=== PATIENT | female | born 1960 | race American Indian/Alaskan Native ===

== ENCOUNTER 2017-05-18 17:07 | Inpatient (IN) | payer BC, OTHER ==
[~2017-05-18] VITALS: Ht 162.6 cm; Wt 99.8 kg
[2017-05-18] MEDS ORDERED: LOPERAMIDE HCL 2 MG CAPSULE PO PRN ×2 (21:30)
[2017-05-18] MEDS ORDERED: ACETAMINOPHEN 325 MG TABLET PO PRN (21:30)
[2017-05-18] MEDS ORDERED: CLONIDINE HCL 0.1 MG TABLET PO PRN (21:30)
[2017-05-18] MEDS ORDERED: LORAZEPAM 2 MG/1 ML VIAL IM PRN (21:30)
[2017-05-18] MEDS ORDERED: DICYCLOMINE HCL 20 MG TABLET PO PRN (21:30)
[2017-05-18] MEDS ORDERED: MIRALAX 17 GM POWD.PACK PO PRN (21:30)
[2017-05-18] MEDS ORDERED: ONDANSETRON 4 MG/2 ML VIAL IM PRN (21:30)
[2017-05-18] MEDS ORDERED: LORAZEPAM 1 MG TABLET PO PRN ×2 (21:30)
[2017-05-18] MEDS ORDERED: THIAMINE HCL 200 MG/2 ML VIAL IM ONE (21:30)
[2017-05-18] MEDS ORDERED: MAG HYDROX/AL HYDROX/SIMETH 30 ML LIQUID UDC PO PRN (21:30)
[2017-05-18 21:40] LABS: *AMPHETAMINE, URINE NEGATIVE (NEGATIVE); *BARBITURATE, URINE NEGATIVE (NEGATIVE); *CANNABINOID, URINE NEGATIVE (NEGATIVE); *COCCAINE, URINE NEGATIVE (NEGATIVE); *OPIATE, URINE NEGATIVE (NEGATIVE); *PHENCYCLIDINE SCREEN,URINE NEGATIVE (NEGATIVE)
--- NOTE | 2017-05-18 21:45 | NUR ---
Intake Assessment Assessment done at intake office. Patient is alert & oriented to name, place & situation. Pt is ambulatory with a steady gait. Patient appears intoxicated but cooperative during interviews. Speech is slurred but audible. Vitals noted B/P=140/101 MD=98, RR=18, Temp 97.1, O2Sat 97%. Pt is here for ETOH. No seizure history noted. Pt. has no known food and CODEINE allergy. Pt doesn't has any prescribed home medications. Explained to pt unit protocols. Pt informed on policy regarding destruction of any controlled substances/prescription brought to facility and handling of all medications. Pt verbalized understanding. Pt. will be admitted to the unit.
[2017-05-18] MEDS ORDERED: THIAMINE HCL 200 MG/2 ML VIAL ONE (22:17)
--- NOTE | 2017-05-18 23:00 | NUR ---
ADMISSION NOTE : Patient is a 56 y.o female admitted at [facility] at approximately 22:00pm of 05/18/17 for medically supervised withdrawal from ETOH. Body search done and skin check performed in Room 319 by SANJAY Saucedo, no contraband found. Pt. has multiple bruises, also under left eye, but no open wounds. Pt is 5'4" tall and weighs 220 lbs in a standing scale. Pt. denies to have Primary Care Provider at this time. Her longest sober period was 33 days in 2017. Pt is cooperative during assessment. Patient follows a regular diet at home with no known food, CODEINE allergy. Pt wishes to be full Code. Patient is alert & oriented x4, ambulatory with a steady gait. Speech is slurred but audible. Pt is intoxicated but able to answer questions. Patient appears anxious and agitated. Respiration even & unlabored. Abdomen soft & non-distended. Bowel sounds active in all four quadrants. No nausea/vomiting noted. Mild tremors noted. Pt denies any hallucinations. Vitals upon admission: B/P 140/101, WA 98, Temp 98.1, RR= 16, O2Sat= 97%. CIWA=5 Pt. has history of passive SI on 05/16/2017. Pt was able to provide urine sample for drug screen upon admission and is voiding clear yellow urine with no problems. She was oriented to her room and unit. Patient was encouraged to attend group meetings tomorrow. Alcohol level is 0.11. Fall precautions are in place. All needs attended & met. Safety precautions are in place. Notified Dr. Gaspar of pt's admission and will see pt in the morning. Awaiting for admission order. Safety measures in place : bed on lowest position with side rails x2 up for safety, call light within reach. Will continue to monitor closely and offer help. Substance use: 1. ETOH-VODKA. Pt has been drinking since 13 years old. Pt drinks 200ml of Vodka daily for 6 months. Last drink was 200ml 4 hours prior to admission. 2. ETOH- BEER. Pt has been drinking since 13 years old . Pt drinks 24 cans of Beer daily for 6 months. Last drink was 2,000ml 4 hours prior to admission. Pt. took 10 pills Xanax PO on 05/11/2017 and 05/12/2017 because of my depression Treatment History: -It is her first Detox treatment. PAST MEDICAL HISTORY : Pt. states to have HTN, DMII, Depression. She doesnt follow diet, Doesn't check her BS. FAMILY HISTORY : Parents and brother past away from complications of Alcohol abuse. Two sisters have HTN, Obesity. Three kids are in a good health.
[2017-05-18 23:27] LABS: *URINE HCG, QUAL NEGATIVE (NEGATIVE)
[2017-05-18 23:59] LABS: BILIRUBIN,TOTAL 0.2 mg/dL (0.2-1.0); MAGNESIUM 1.8 mg/dL (1.8-2.4); POTASSIUM 3.4 mmol/L (3.5-5.1); TOTAL PROTEIN, SERUM 7.6 g/dL (6.4-8.2)
[2017-05-19] VITALS: BP 140/101
[2017-05-19 00:08] LABS: BASOPHILS % (AUTO) 0.5 % (0.0-2.0); EOSINOPHILS # (AUTO) 0.1 K/uL (0.0-0.7); EOSINOPHILS % (AUTO) 2.1 % (0.0-7.0); HEMATOCRIT 34.2 % (37-47); HEMOGLOBIN 11.4 G/DL (12.0-16.0); LYMPHOCYTES # (AUTO) 2.3 K/UL (0.8-4.8); MEAN CORPUSCULAR HEMOGLOBIN 25.1 UUG (27.0-31.0); MEAN CORPUSCULAR HGB CONC 33 g/dL (32.0-37.0); MEAN CORPUSCULAR VOLUME 75.6 FL (81.0-99.0); MONOCYTES # (AUTO) 0.4 K/UL (0.1-1.30); MONOCYTES % (AUTO) 6.1 % (0.0-11.0); NEUTROPHILS # (AUTO) 3.5 K/UL (1.8-8.9); NEUTROPHILS % (AUTO) 55.3 % (38.5-71.5); PLATELET COUNT (AUTO) 241 K/UL (150-450); RED BLOOD CELL COUNT(AUTO) 4.52 MIL/UL (4.2-5.4); WHITE BLOOD COUNT (AUTO) 6.3 K/UL (4.0-11.2)
[2017-05-19 00:10] LABS: THYROID STIMULATING HORMONE 1.956 mIU/mL (0.358-3.740)
[2017-05-19 04:00] VITALS: BP 147/85
--- NOTE | 2017-05-19 05:00 | NUR ---
PRN MOTRIN Pt. complains of body ache 04/19. PRN MOTRIN given as ordered. Safety measures in place : bed on lowest position with side rails x2 up for safety, call light within reach. Will continue to monitor closely and offer help.
[2017-05-19] MEDS: IBUPROFEN 400 MG TABLET PO PRN ×2 (05:19→21:13)
[2017-05-19] MEDS ORDERED: IBUPROFEN 400 MG TABLET ONE (05:26)
--- NOTE | 2017-05-19 06:00 | NUR ---
REASSESSMENT GOGO Pt. is sleeping, RR=16, unlabored and even. Safety measures in place : bed on lowest position with side rails x2 up for safety, call light within reach. Will continue to monitor closely and offer help.
--- NOTE | 2017-05-19 06:39 | NUR ---
END OF SHIFT: Patient is a 56 y.o female admitted at [facility] at 22:00pm on 05/18/17 for medically supervised withdrawal from ETOH. Pt. has multiple bruises, also under left eye, but no open wounds. Patient follows a regular diet at home with no known food allergy , CODEINE allergy. Pt wishes to be full Code. Patient is alert & oriented x4, ambulatory with a steady gait. Patient appears anxious. Mild tremors noted. Pt denies any hallucinations. Fall precautions are in place. All needs attended & met. Pt remains compliant with the treatment plan. PRNs MOTRIN given during my shift. V/S remain WNL. RR=16, even and unlabored, lungs clear upon auscultation, abdomen soft and non- distended. Pt denies nausea, vomiting and diarrhea. LAST CIWA= 5 at 0400 , INTAKE= 740 ml, voided x 4, slept 5 hours. Safety measures in place : bed on lowest position with side rails x2 up for safety, call light within reach. Will continue to monitor closely and offer help.
--- NOTE | 2017-05-19 07:51 | NUR ---
Start of shift note; Received report from night nurse. Patient is a 56 year old female admitted on 05/18/17 for ETOH withdrawals. Patient reported history of hypertension, depression, passive suicidal ideation on 05/11/17, patient currently denies suicidal ideations. Patient also reported history of Diabetes type 2, patient reported that she stopped taking her Metformin 5 years ago and patient refused to check her blood sugar levels, upon admission blood sugar noted to be 158mg/dl. Educated patient regarding the importance of compliance to treatment and medication regime. Patient to be evaluated by MD today. No seizure history reported. Patient is on fall and seizure precaution. Bed in lowest position, call light within reach. Will closely monitor patient.
[2017-05-19 08:00] VITALS: BP 138/88
[2017-05-19] MEDS: THIAMINE HCL 100 MG TABLET PO SCH (08:31)
[2017-05-19] MEDS: FOLIC ACID 1 MG TABLET PO SCH (08:31)
[2017-05-19] MEDS: MULTIVITAMINS,THERAPEUTIC TABLET PO SCH (08:31)
[2017-05-19] MEDS: LORAZEPAM 1 MG TABLET PO SCH ×4 (08:31→21:12)
[2017-05-19] MEDS: ONDANSETRON ODT 4 MG TAB.RAPDIS SL PRN (08:37)
--- NOTE | 2017-05-19 08:39 | NUR ---
PRN medication; Patient is complaining of nausea, no emesis noted. PRN Zofran 4mg ODT given to prevent further nausea. Will continue to monitor patient for effectiveness of medication. Patient was started on 5 day Ativan taper per MD order, current CIWA score of 10. Educated patient regarding adverse/side effects of medication, Patient verbalized understanding.
[2017-05-19] MEDS ORDERED: TUBERCULIN,PURIF.PROT.DERIV. 5 TU/0.1 ML TEST ID ONE (09:00)
--- NOTE | 2017-05-19 09:39 | NUR ---
Re-assessment; Patient denies nausea at this time. PRN medication is effective.
--- NOTE | 2017-05-19 10:01 | NUR ---
Therapist prompted client about group times. Client reported she does not feel well today, and most likely won't attend.
[2017-05-19 12:00] VITALS: BP 161/75
--- NOTE | 2017-05-19 12:21 | NUR ---
PRN medication ; Patient BP noted to be elevated , BP of 161/75 note, PRN Clonidine 0.1mg PO given per MD order. Will continue to monitor patient for effectiveness of medication.
[2017-05-19] MEDS ORDERED: LISINOPRIL 10 MG TABLET PO SCH (13:15)
--- NOTE | 2017-05-19 13:21 | NUR ---
Re-assessment; Patient current BP is 132/82, HR of 80. PRN clonidine is effective.
[2017-05-19] MEDS ORDERED: POTASSIUM CHLORIDE 20 MEQ TAB.PRT.SR PO ONE (13:30)
[2017-05-19] MEDS ORDERED: LISINOPRIL 10 MG TABLET PO ONE (13:30)
--- NOTE | 2017-05-19 13:31 | NUR ---
New orders; ordered, K-dur 40meq for supplement. also ordered Prinivil 10mg PO daily and Metformin 500mg daily d/t patient reported history of DM type 2 and hypertension. Will continue to monitor patient. Addendum: 05/19/17 at 1500 by GUILLERMO SUTTON LVN Clarification; Metformin 500mg BID.
[2017-05-19 16:00] VITALS: BP 111/57
[2017-05-19] MEDS: METFORMIN HCL 500 MG TABLET PO SCH (17:27)
--- NOTE | 2017-05-19 18:21 | NUR ---
End of shift note; Patient is AOX4. Patient remained compliant with treatment plan and medication regime. Medications were effective in reducing withdrawal symptoms. Patient last CIWA score is 6 at 1600. Patient's Potassium was supplemented. Patient was placed on Metformin 500mg BID for DM type 2. Patient was started on 5 day Ativan taper, no adverse reactions noted. Patient is on fall and seizure precaution. Bed in lowest position, call light within reach. Met all needs.
--- NOTE | 2017-05-19 19:15 | NUR ---
START OF SHIFT NOTE : Patient is a 56 year old female admitted on 05/18/17 for ETOH withdrawals. Patient reported history of hypertension, depression, passive suicidal ideation on 05/11/17, patient currently denies suicidal ideations. Patient also reported history of Diabetes type 2, patient reported that she stopped taking her Metformin 5 years ago and patient refused to check her blood sugar levels. Educated patient regarding the importance of compliance to treatment and medication regime. No seizure history reported. Patient is on fall and seizure precaution, A/Ox4, friendly and cooperative. Pt. complains of sleeplessness and moderate body ache. She started on 5 day Ativan taper on 05/19/2017. Safety measures in place : bed on lowest position with side rails x2 up for safety, call light within reach. Will continue to monitor closely and offer help.
[2017-05-19 20:00] VITALS: BP 111/63
--- NOTE | 2017-05-19 21:00 | NUR ---
PRN MOTRIN, BENADRYL Pt. complains of sleeplessness, mild body ache. PRN MOTRIN, BENADRYL given as ordered. Safety measures in place : bed on lowest position with side rails x2 up for safety, call light within reach. Will continue to monitor closely and offer help.
[2017-05-19] MEDS: diphenhydrAMINE 50 MG CAPSULE PO PRN (21:13)
--- NOTE | 2017-05-19 22:00 | NUR ---
REASSESSMENT MONICA BOWENS Pt. is sleeping, RR=16, unlabored and even. Safety measures in place : bed on lowest position with side rails x2 up for safety, call light within reach. Will continue to monitor closely and offer help.
[2017-05-20 04:00] VITALS: BP 114/56
--- NOTE | 2017-05-20 06:36 | NUR ---
END OF SHIFT NOTE : Patient is a 56 year old female admitted on 05/18/17 for ETOH withdrawals. Patient reported history of hypertension, depression, passive suicidal ideation on 05/11/17, patient currently denies suicidal ideations. Patient also reported history of Diabetes type 2, patient reported that she stopped taking her Metformin 5 years ago and patient refused to check her blood sugar levels. Educated patient regarding the importance of compliance to treatment and medication regime. No seizure history reported. Patient is on fall and seizure precaution, A/Ox4, friendly and cooperative. Pt. complains of sleeplessness and moderate body ache. She started on 5 day Ativan taper on 05/19/2017. Pt remains compliant with the treatment plan. PRNs BENADRYL, MOTRIN given during my shift. V/S remain WNL. RR=16, even and unlabored, lungs clear upon auscultation, abdomen soft and non- distended. Pt denies nausea, vomiting and diarrhea. LAST CIWA= 4 at 0400 , INTAKE= 1291 ml, voided x2 , slept 7 hours. Safety measures in place : bed on lowest position with side rails x2 up for safety, call light within reach. Will continue to monitor closely and offer help.
--- NOTE | 2017-05-20 07:14 | NUR ---
Start of shift note SBAR report rcv'd. Pt was admitted for ETOH dependence. Pt has a PMHx of DM II controlled with oral medications, HTN and depression. Pt is on a 5 day ativan taper. Pt reports an allergy to codeine, pt is a full code and on a regular diet, confirmed with MD H&P notes. Pt is currently resting in bed, pt has no complaints at this time. Bed is locked in a low position, call light within reach. All needs addressed at this time. Will continue to monitor pt.
[2017-05-20 08:00] VITALS: BP 131/72
[2017-05-20 08:06] LABS: HEPATITIS B SURFACE AG Negative (Negative)
[2017-05-20] MEDS: METFORMIN HCL 500 MG TABLET PO SCH ×2 (08:20→17:25)
--- NOTE | 2017-05-20 08:20 | NUR ---
PRN administration Pt c/o pain 5/10 in her right arm. Administered PRN motrin per MD order. Will continue to monitor pt.
[2017-05-20] MEDS: IBUPROFEN 400 MG TABLET PO PRN ×2 (08:21→12:34)
[2017-05-20] MEDS: FOLIC ACID 1 MG TABLET PO SCH (08:21)
[2017-05-20] MEDS: THIAMINE HCL 100 MG TABLET PO SCH (08:21)
[2017-05-20] MEDS: LISINOPRIL 20 MG TABLET PO SCH (08:21)
[2017-05-20] MEDS: LORAZEPAM 1 MG TABLET PO SCH ×3 (08:21→20:56)
[2017-05-20] MEDS: MULTIVITAMINS,THERAPEUTIC TABLET PO SCH (08:21)
[2017-05-20 08:25] LABS: CREATININE 0.8 mg/dL (0.6-1.3); POTASSIUM 4.5 mmol/L (3.5-5.1)
[2017-05-20] MEDS ORDERED: LISINOPRIL 10 MG TABLET PO SCH (09:00)
--- NOTE | 2017-05-20 09:20 | NUR ---
Reassessment Pt states that her pain has improved to a level of 2/10. Pt states that she is comfortable at this time. Will continue to monitor pt.
[2017-05-20 12:00] VITALS: BP 149/81
--- NOTE | 2017-05-20 12:38 | NUR ---
PRN administration Pt reports a pain level of 7/10 in her shoulder. Administered PRN motrin per MD order. Will continue to monitor pt.
--- NOTE | 2017-05-20 13:28 | NUR ---
Reassessment Pt states that her pain level is 4/10 and that she is comfortable. All other needs addressed. Will continue to monitor pt.
[2017-05-20] MEDS: CLONIDINE HCL 0.1 MG TABLET PO SCH ×2 (14:15→20:56)
[2017-05-20 16:00] VITALS: BP 150/80
--- NOTE | 2017-05-20 18:58 | NUR ---
End of shift note Pt was admitted for ETOH dependence. Pt has a PMHx of DM II controlled with oral medications, HTN and depression. Pt is on a 5 day ativan taper and is tolerating well. Pt reports an allergy to codeine, pt is a full code and on a regular diet. Pt was started on Clonidine to assist in managing her s/s of withdrawal. Pt has no complaints at this time. At 0800 pt had a CIWA of 11, and at 1600 pt had a CIWA of 6. Pt states that the medication is assisting to make her feel better. Pt drank 2250ml of fluids, ate 100% of breakfast, 25% of lunch and 75% of dinner. Pt had 3 voids and no BMs during the shift. Pt has no complaints at this time. Will endorse SBAR to oncoming shift.
--- NOTE | 2017-05-20 19:10 | NUR ---
Start of Shift Patient received. Patient is in activities room participating in group meeting. Patient is a 56 year old female, admitted on 05/18/17 for ETOH Dependence under the care of Dr. Gaspar. Patient is currently receiving a 5 day Ativan taper. Patient verbalizes allergy to Codeine, wishes to be full code, following a regular diet, placed on fall and seizure precautions. Skin noted with multiple scattered discolorations throughout body. Patient was give PRN motrin with medication noted to be effective. Last noted CIWA noted to be 6. All needs attended to promptly. Will continue plan of care as ordered.
[2017-05-20 20:20] VITALS: BP 139/77
[2017-05-20] MEDS: diphenhydrAMINE 50 MG CAPSULE PO PRN (21:00)
--- NOTE | 2017-05-20 21:00 | NUR ---
PRN Medication administration Patient is verbalizing inability of falling asleep. All non pharmacological interventions noted to be not effective. PRN Benadryl administered. Will continue to monitor for effectiveness.
--- NOTE | 2017-05-20 22:00 | NUR ---
PRN Medication Reassessment Patient noted in bed sleeping. Breathing even and non labored. No signs of pain or discomfort noted. PRN Benadryl administered and noted to be effective. Patient continues to sleep with no interruptions noted. Will continue to monitor.
[2017-05-21] VITALS: BP 127/57
[2017-05-21 04:00] VITALS: BP 140/76
--- NOTE | 2017-05-21 07:07 | NUR ---
End of Shift Patient is in bed sleeping. Breathing even and non labored. No signs of pain or discomfort. Patient is a 56 year old female, admitted on 05/18/17 for ETOH Dependence under the care of Dr. Gaspar. Patient is currently receiving a 5 day Ativan taper. Patient verbalizes allergy to Codeine, full code, regular diet, placed on fall and seizure precautions. Skin noted with multiple scattered discolorations throughout body. Patient was give PRN Benadryl for sleep with medication noted to be effective. Last noted CIWA noted to be 5. All needs attended to promptly. Will endorse to continue plan of care as ordered.
--- NOTE | 2017-05-21 07:22 | NUR ---
Start of shift note; Received report from night nurse. Patient is a 56 year old female admitted on 05/18/17 for ETOH withdrawals. Patient reported history of hypertension, depression, passive suicidal ideation on 05/11/17, patient currently denies suicidal ideations. Patient also reported history of Diabetes type 2, patient was placed on Metformin 500mg BID. Educated patient regarding the importance of compliance to treatment and medication regime. No seizure history reported. Patient is on fall and seizure precaution. Bed in lowest position, call light within reach. Will closely monitor patient.
[2017-05-21 08:00] VITALS: BP 157/65
[2017-05-21] MEDS: glipiZIDE 5 MG TABLET PO SCH (08:15)
[2017-05-21] MEDS: METFORMIN HCL 500 MG TABLET PO SCH ×2 (08:15→17:16)
[2017-05-21] MEDS: LORAZEPAM 1 MG TABLET PO SCH ×4 (08:15→21:20)
[2017-05-21] MEDS: THIAMINE HCL 100 MG TABLET PO SCH (08:15)
[2017-05-21] MEDS: FOLIC ACID 1 MG TABLET PO SCH (08:16)
[2017-05-21] MEDS: CLONIDINE HCL 0.1 MG TABLET PO SCH ×3 (08:16→21:20)
[2017-05-21] MEDS: MULTIVITAMINS,THERAPEUTIC TABLET PO SCH (08:16)
[2017-05-21] MEDS: LISINOPRIL 20 MG TABLET PO SCH (08:16)
[2017-05-21 12:00] VITALS: BP 115/76
[2017-05-21] MEDS: GABAPENTIN 300 MG CAPSULE PO SCH ×2 (14:17→21:19)
[2017-05-21] MEDS: IBUPROFEN 400 MG TABLET PO PRN ×2 (14:39→21:20)
--- NOTE | 2017-05-21 14:39 | NUR ---
PRN medication; Patient is complaining of arm pain rated 5/10, PRN Motrin 400mg PO given. Will continue to monitor for effectiveness of medication.
--- NOTE | 2017-05-21 15:39 | NUR ---
Re-assessment; PRN medication is effective. Patient denies pain at this time.
[2017-05-21 16:00] VITALS: BP 143/78
--- NOTE | 2017-05-21 18:01 | NUR ---
End of shift note; Patient is AOX4. Patient remained compliant with treatment plan and medication regime. Medications were effective in reducing withdrawal symptoms. Patient last CIWA score is 2 at 1600. Patient was started on 5 day Ativan taper, no adverse reactions noted. Patient remained compliant with treatment plan and medication regime. Patient is on fall and seizure precaution. Bed in lowest position, call light within reach. Met all needs.
--- NOTE | 2017-05-21 19:25 | NUR ---
Start of Shift Patient received. Patient is in activities room participating in group meeting. Patient is a 56 year old female, admitted on 05/18/17 for ETOH Dependence under the care of Dr. Gaspar. Patient is currently receiving a 5 day Ativan taper. Patient verbalizes allergy to Codeine, wishes to be full code, following a regular diet, placed on fall and seizure precautions. Skin noted with multiple scattered discolorations throughout body. Per endorsement, Patient was give PRN Motrin for right shoulder pain with medication noted to be effective. Last noted CIWA noted to be 2. All needs attended to promptly. Will continue plan of care as ordered.
[2017-05-21 20:30] VITALS: BP 132/74
[2017-05-21] MEDS: diphenhydrAMINE 50 MG CAPSULE PO PRN (21:20)
--- NOTE | 2017-05-21 21:20 | NUR ---
PRN Medication Administration Patient verbalized right shoulder pain 5/10 and inability of falling asleep. PRN Motrin and Benadryl administered. Will continue to monitor.
--- NOTE | 2017-05-21 22:20 | NUR ---
PRN Medication Reassessment Patient noted in bed sleeping. Breathing even and non labored. No signs of pain or discomfort noted. No facial grimacing noted. PRN Benadryl and Motrin noted to be effective. Will continue to monitor.
[2017-05-22 00:30] VITALS: BP 151/63
[2017-05-22 04:20] VITALS: BP 144/67
--- NOTE | 2017-05-22 07:17 | NUR ---
End of Shift Patient is in bed sleeping. Breathing even and non labored. No signs of pain or discomfort. Patient is a 56 year old female, admitted on 05/18/17 for ETOH Dependence under the care of Dr. Gaspar. Patient is currently receiving a 5 day Ativan taper. Patient verbalizes allergy to Codeine, full code, regular diet, placed on fall and seizure precautions. Skin noted with multiple scattered discolorations throughout body. Patient was given PRN Benadryl for sleep and PRN Motrin for pain with both medications noted to be effective. All needs attended to promptly. Will endorse to continue plan of care as ordered.
[2017-05-22 08:00] VITALS: BP 139/82
--- NOTE | 2017-05-22 08:30 | NUR ---
Start of Shift Notes: Received patient in her room. Alert and oriented x 4. Verbally responsive. Able to make her needs known. Respirations even and unlabored. No SOB noted. Skin warm and dry to touch. Abdomen soft and non-distended with (+) BS in all 4 quadrants. No complains of N/V/D or constipation noted. No complains of abdominal discomfort. Voids independently. Ambulatory ad vijay with steady gait. Patient is a 56 year old female admitted for ETOH dependence. Prior to admission, patient was using 200cc of Vodka, and 24 cans of beer. Placed on a 5-day Ativan taper as ordered. No adverse reactions noted. Has past medical hx of DM type II, HTN and Depression. Allergic to codeine. FULL CODE. Regular diet. On fall and seizure precautions. Encouraged oral fluid intake and encouraged group participation to learn new skills to prevent relapse. Will continue to monitor closely.
[2017-05-22] MEDS: glipiZIDE 5 MG TABLET PO SCH (08:39)
[2017-05-22] MEDS: GABAPENTIN 300 MG CAPSULE PO SCH ×3 (08:39→20:30)
[2017-05-22] MEDS: CLONIDINE HCL 0.1 MG TABLET PO SCH ×3 (08:40→20:31)
[2017-05-22] MEDS: AMLODIPINE 5 MG TABLET PO SCH (08:40)
[2017-05-22] MEDS: MULTIVITAMINS,THERAPEUTIC TABLET PO SCH (08:40)
[2017-05-22] MEDS: LISINOPRIL 20 MG TABLET PO SCH (08:40)
[2017-05-22] MEDS: METFORMIN HCL 500 MG TABLET PO SCH ×2 (08:40→17:10)
[2017-05-22] MEDS: THIAMINE HCL 100 MG TABLET PO SCH (08:40)
[2017-05-22] MEDS: FOLIC ACID 1 MG TABLET PO SCH (08:41)
[2017-05-22] MEDS: LORAZEPAM 1 MG TABLET PO SCH ×3 (08:41→20:31)
[2017-05-22 12:00] VITALS: BP 118/71
[2017-05-22] MEDS: IBUPROFEN 400 MG TABLET PO PRN ×2 (14:31→21:25)
[2017-05-22] MEDS: BACLOFEN 20 MG TABLET PO PRN (14:31)
--- NOTE | 2017-05-22 14:32 | NUR ---
Baclofen 20 mg PO/Ibuprofen 400 mg PO given: Patient complained of 7/10 right arm pain r/t s/p fall. Medicated patient with Baclofen 20 mg and Ibuprofen 400 mg PO as ordered. Will monitor for effectiveness.
--- NOTE | 2017-05-22 15:32 | NUR ---
Re-assessment: Per patient, PRN Baclofen and Motrin were effective in reducing right arm pain. PL 2.
[2017-05-22 16:00] VITALS: BP 121/73
--- NOTE | 2017-05-22 17:08 | NUR ---
Therapist prompted client to attend daily group sessions. Client stated that she will attend.
--- NOTE | 2017-05-22 18:46 | NUR ---
End of Shift Notes; Patient continues to be on 5-day Ativan taper as ordered. No adverse reactions noted. VS monitored closely q 4hours. No significant abnormalities noted. BP monitored closely due to HTN. No s/s of hypo/HTN noted. No s/s of hypo/hyperglycemia noted related to DM. Withdrawal symptoms were closely monitored. Initial CIWA 3. Patient presented with anxiety, mild sweats. Last CIWA 2. Medicated patient with Motrin and Baclofen at 1431 for right arm pain due to a fall at home with help after 1 hour. Participated in group and activities. Compliant with care and treatment. All needs met and attended. Will continue to monitor closely.
[2017-05-22 20:00] VITALS: BP 127/75
--- NOTE | 2017-05-22 20:00 | NUR ---
Start of Shift Pt is a 56 year old female admitted for ETOH dependence, placed on 5 day Ativan taper. Pt reported using Vodka 200ml/daily & Beer 24 cans/daily. PMH: DM II, HTN, depression. pt reports allergies to codeine, regular diet, fall seizure precautions and full code. Upon assessment, pt presents with anxiety, reports feeling fatigue, mild chills throughout body, Respirations even/unlabored, denies SOB/chest pain, denies n/v/d, denies SI/HI, bowel sounds active x4, abdomen soft. Safety measures in place, call light within reach, side rails up x2, bed locked and in low position. Will continue to monitor.
[2017-05-22] MEDS ORDERED: PRAZOSIN HCL 1 MG CAPSULE PO SCH (21:00)
[2017-05-22] MEDS: diphenhydrAMINE 50 MG CAPSULE PO PRN (21:22)
--- NOTE | 2017-05-22 21:22 | NUR ---
PRN Administration Pt reports pain in right wrist, rated 7/10. Pt requests aid to help her sleep. Motrin 400mg PRN and Benadryl 50mg PRN administered. Safety measures in place. Will continue to monitor.
--- NOTE | 2017-05-22 22:30 | NUR ---
PRN Reassessment Upon reassessment, pt is sleeping, eyes closed, respirations even/unlabored, no s/s of acute distress noted. Safety measures in place. Will continue to monitor.
[2017-05-23] VITALS (7 sets, daily range): BP systolic 108–152; BP diastolic 64–79
--- NOTE | 2017-05-23 | NUR ---
Vital Signs BP 138/69, pulse 65, respirations 16, SpO2 97% room air, temp 97.9, no pain 0/10 CIWA deferred d/t pt sleeping to assess while pt is awake as ordered. Safety measures in place, will continue to monitor.
--- NOTE | 2017-05-23 04:00 | NUR ---
Vital Signs BP 152/75, pulse 49, respirations 16, SpO2 97% room air, temp 98 CIWA deferred d/t pt sleeping to assess while pt is awake as ordered. No s/s of acute distress noted, respirations even/unlabored, no reports of pain Safety measures in place, will continue to monitor.
--- NOTE | 2017-05-23 07:00 | NUR ---
End of Shift Pt is a 56 year old female admitted for ETOH dependence, placed on 5 day Ativan taper. Pt reported using Vodka 200ml/daily & Beer 24 cans/daily. PMH: DM II, HTN, depression. pt reports allergies to codeine, regular diet, fall seizure precautions and full code. During, pt presented with anxiety, reported feeling fatigue, mild chills throughout body - scheduled taper medications administered, effective in management of s/s of withdrawal as reported per pt, CIWA 3. Motrin 400mg PRN and Benadryl 50mg PRN administered for pain 7/10 in right wrist and for difficulty sleeping, effective. Pt slept for 7 hours, intake of 1500 ml PO, voids x1 and stool x0. Safety measures in place, call light within reach, side rails up x2, bed locked and in low position. Endorsed to day shift nurse.
--- NOTE | 2017-05-23 07:30 | NUR ---
START OF SHIFT Pt 56 y/o female admitted for etoh dependence. Pt received in room on bed with eyes closed resting, but easily arousable to name, place, and time. Perrla. Skin warm and slightly moist to touch. Respirations even and unlabored. No signs/symptoms of hypo/ hyperglycemia noted. It was reported that pt slept for 7 hours last night. Bed on lowest position with side rails x2 up for safety. Call light within reach. No distress noted at this time.
[2017-05-23] MEDS: CLONIDINE HCL 0.1 MG TABLET PO SCH ×3 (08:20→21:56)
[2017-05-23] MEDS: glipiZIDE 5 MG TABLET PO SCH (08:20)
[2017-05-23] MEDS: METFORMIN HCL 500 MG TABLET PO SCH ×2 (08:21→17:04)
[2017-05-23] MEDS: AMLODIPINE 5 MG TABLET PO SCH (08:21)
[2017-05-23] MEDS: FOLIC ACID 1 MG TABLET PO SCH (08:21)
[2017-05-23] MEDS: MULTIVITAMINS,THERAPEUTIC TABLET PO SCH (08:21)
[2017-05-23] MEDS: LISINOPRIL 20 MG TABLET PO SCH (08:21)
[2017-05-23] MEDS: THIAMINE HCL 100 MG TABLET PO SCH (08:21)
[2017-05-23] MEDS: GABAPENTIN 300 MG CAPSULE PO SCH ×3 (08:21→21:56)
[2017-05-23] MEDS: IBUPROFEN 400 MG TABLET PO PRN ×2 (08:21→21:56)
--- NOTE | 2017-05-23 08:21 | NUR ---
PRN Pt states has right arm pain 5/10. Motrin po prn per MD order given and tolerated well.
[2017-05-23] MEDS: LORAZEPAM 1 MG TABLET PO SCH ×2 (08:22→21:56)
--- NOTE | 2017-05-23 09:16 | NUR ---
PRN Pt with vomit episode. zofran IM per MD order given and tolerated well.
--- NOTE | 2017-05-23 09:21 | NUR ---
PRN EVAL Pt stated right arm pain 2/10.
--- NOTE | 2017-05-23 10:16 | NUR ---
PRN EVAL Pt observed in room on bed watching television. No c/o nausea noted.
--- NOTE | 2017-05-23 12:38 | NUR ---
PRN Pt with c/o left lower extremity pain. [place] topical prn per MD order given. Addendum: 05/23/17 at 1300 by NICHOLAS ROA RN incorrect pt
[2017-05-23] MEDS: BACLOFEN 20 MG TABLET PO PRN ×2 (14:12→23:31)
--- NOTE | 2017-05-23 14:13 | NUR ---
PRN Pt with c/o muscle aches. Robaxin po prn per MD order given and tolerated well.
--- NOTE | 2017-05-23 15:10 | NUR ---
PRN FELIX pt states pain 02/17.
--- NOTE | 2017-05-23 18:30 | NUR ---
END OF SHIFT Pt 56 y/o female admitted for etoh dependence. Pt alert and oriented to name, place, and time. [place]. Skin warm and slightly moist to touch. Respirations even and unlabored. Pt mostly observed in patio and dining room throughout the day. Pt was seen by OT for eval for a splint on right wrist. Pt medication compliant and tolerated well. No ASE noted. Bed on lowest position with side rails x2 up for safety. Call light within reach. No distress noted at this time.
--- NOTE | 2017-05-23 20:15 | NUR ---
START OF SHIFT Received report from day shift nurse. Pt attended a group meeting and returned to her room after. She is a 56 yo female admitted to [facility] on 05/18 for ETOH dependence. She is A&O x4 and ambulatory. Allergic to codeine, full code status, and on a regular diet. She has a PMH of DM Type II, HTN, SI 05/11/14, right wrist injury, and depression. On admission she admitted to drinking vodka 200mL per day and beer 24 cans per day. She started a 5 day Ativan taper on 05/19. Pt reports anxiety and has moist skin. She is tearful when speaking about her family and verbalizes her motivation for treatment. Pt denies SI. Provided support and encouragement. Ativan taper due tonight. Fall and seizure precautions in place.
--- NOTE | 2017-05-23 21:57 | NUR ---
PRN Motrin reassessment Pt reports right wrist pain 5/10. PRN Motrin administered.
--- NOTE | 2017-05-23 22:57 | NUR ---
PRN Motrin reassessment PRN Motrin effective. Pt reports right wrist pain is relieved.
[2017-05-23] MEDS: diphenhydrAMINE 50 MG CAPSULE PO PRN (23:31)
--- NOTE | 2017-05-23 23:32 | NUR ---
PRN Baclofen and Benadryl Pt reports back ache and inability to sleep. PRN Baclofen and Benadryl administered.
[2017-05-24] VITALS (8 sets, daily range): BP systolic 108–150; BP diastolic 57–90
--- NOTE | 2017-05-24 00:32 | NUR ---
PRN Baclofen and Benadryl reassessment PRN Baclofen and Benadryl effective. Pt is lying in bed resting with eyes closed. Respirations even and unlabored. Safety measures in place.
[2017-05-24] MEDS: IBUPROFEN 400 MG TABLET PO PRN ×2 (05:59→21:53)
[2017-05-24] MEDS ORDERED: HYDROXYZINE PAMOATE 25 MG CAPSULE PO PRN (06:15)
--- NOTE | 2017-05-24 06:20 | NUR ---
PRN Vistaril and Motrin Pt woke up with an episode of nocturia. She is anxious and tearful. She reports, "this never happened before". B/P 150/90, HR 69, RR 18, O2 sat 100%, T 98.0. She reports a headache. Provided support. Educated pt regarding diabetic diet. PRN Vistaril and Motrin administered.
[2017-05-24] MEDS ORDERED: HYDROXYZINE PAMOATE 25 MG CAPSULE ONE (06:27)
--- NOTE | 2017-05-24 07:25 | NUR ---
END OF SHIFT Report provided to day shift nurse. Pt is lying in bed resting. She is a 56 yo female admitted to [facility] on 05/18 for ETOH dependence. She is A&O x4 and ambulatory. Allergic to codeine, full code status, and on a regular diet. She has a PMH of DM Type II, HTN, SI 05/11/14, and depression. Upon admission she reported drinking vodka 200mL per day and beer 24 cans per day. 5 day Ativan taper was started on 05/19. PRN Motrin x2, Baclofen, Vistaril, and Benadryl administered. B/P slightly elevated and she had ongoing anxiety. Pt had one episode of nocturia. Last CIWA was 8. She drank 1250mL and slept for 7 hours. Fall and seizure precautions in place.
[2017-05-24] MEDS: THIAMINE HCL 100 MG TABLET PO SCH (09:20)
[2017-05-24] MEDS: FOLIC ACID 1 MG TABLET PO SCH (09:20)
[2017-05-24] MEDS: METFORMIN HCL 500 MG TABLET PO SCH ×2 (09:20→18:44)
[2017-05-24] MEDS: LISINOPRIL 20 MG TABLET PO SCH (09:20)
[2017-05-24] MEDS: MULTIVITAMINS,THERAPEUTIC TABLET PO SCH (09:20)
[2017-05-24] MEDS: CLONIDINE HCL 0.1 MG TABLET PO SCH ×3 (09:21→21:20)
[2017-05-24] MEDS: GABAPENTIN 300 MG CAPSULE PO SCH ×3 (09:21→21:21)
[2017-05-24] MEDS: BACLOFEN 20 MG TABLET PO PRN (09:21)
--- NOTE | 2017-05-24 09:21 | NUR ---
PRN Pt with c/o right wrist pain 06/19. Baclofen po prn per MD order given and tolerated well.
[2017-05-24] MEDS: glipiZIDE 5 MG TABLET PO SCH (09:22)
[2017-05-24] MEDS: AMLODIPINE 5 MG TABLET PO SCH (09:36)
--- NOTE | 2017-05-24 10:21 | NUR ---
PRN EVAL Pt states pain is 4/10.
[2017-05-24] MEDS: ONDANSETRON ODT 4 MG TAB.RAPDIS SL PRN (11:34)
--- NOTE | 2017-05-24 11:39 | NUR ---
PRN Pt with 1 vomit episode. Zofran po prn per MD order given and tolerated well.
--- NOTE | 2017-05-24 12:39 | NUR ---
PRN EVAL Pt denies any nausea or vomit at this time.
[2017-05-24] MEDS ORDERED: METHOCARBAMOL 750 MG TABLET PO PRN (13:15)
[2017-05-24] MEDS ORDERED: LISI-603 PO (13:19)
[2017-05-24] MEDS ORDERED: METH-406 PO (13:19)
[2017-05-24] MEDS ORDERED: AMLO5TAB2 PO (13:19)
[2017-05-24] MEDS ORDERED: GLIP5TAB13 PO (13:19)
[2017-05-24] MEDS ORDERED: GABA-534 PO (13:19)
[2017-05-24] MEDS ORDERED: HYDR-3895 PO (13:19)
[2017-05-24] MEDS ORDERED: ONDA4TAB11 SL (13:19)
[2017-05-24] MEDS ORDERED: CLON0.1T14 PO (13:19)
[2017-05-24] MEDS ORDERED: METF500T4 PO (13:19)
--- NOTE | 2017-05-24 16:40 | NUR ---
PRN Pt with c/o pain 8/10 of right wrist. Robaxin po prn per MD order given and tolerated well.
--- NOTE | 2017-05-24 17:40 | NUR ---
SUSAN [place] Pt observed walking around in patio. No distress noted at this time.
--- NOTE | 2017-05-24 18:29 | NUR ---
END OF SHIFT Pt 56 y/o female admitted for etoh dependence. Pt alert and oriented to name, place, and time. [place]. Skin warm and slightly moist to touch. Respirations even and unlabored. Pt mostly observed in patio and dining room throughout the day. Pt was seen by OT for eval for a splint on right wrist. Pt medication compliant and tolerated well. No ASE noted. Pt was seen by Dr. Delaney today. Bed on lowest position with side rails x2 up for safety. Call light within reach. No distress noted at this time.
[2017-05-24 19:52] LABS: *AMPHETAMINE, URINE NEGATIVE (NEGATIVE); *BARBITURATE, URINE NEGATIVE (NEGATIVE); *CANNABINOID, URINE NEGATIVE (NEGATIVE); *COCCAINE, URINE NEGATIVE (NEGATIVE); *OPIATE, URINE NEGATIVE (NEGATIVE); *PHENCYCLIDINE SCREEN,URINE NEGATIVE (NEGATIVE)
--- NOTE | 2017-05-24 20:00 | NUR ---
Start of Shift Pt is a 56 year old female admitted for ETOH dependence, placed on 5 day Ativan taper, completed. Pt reported using Vodka 200ml/daily & Beer 24 cans/daily. PMH: DM II, HTN, depression. pt reports allergies to codeine, regular diet, fall seizure precautions and full code. Upon assessment, pt presents with anxiety, reports mild body aches. Respirations even/unlabored, denies SOB/chest pain, denies n/v/d, denies SI/HI, bowel sounds active x4, abdomen soft. Pt is scheduled for discharge tomorrow. Safety measures in place, call light within reach, side rails up x2, bed locked and in low position. Will continue to monitor.
[2017-05-24] MEDS: diphenhydrAMINE 50 MG CAPSULE PO PRN (21:53)
--- NOTE | 2017-05-24 21:53 | NUR ---
PRN Administration Pt reports pain in right wrist rated, 6/10. Reports difficulty falling asleep. Motrin 400mg PRN and Benadryl 50mg PRN administered. Safety measures in place, will continue to monitor.
--- NOTE | 2017-05-24 22:53 | NUR ---
PRN Reassessment Upon reassessment, pt is sleeping, no s/s of acute distress noted, respirations even/unlabored. Safety measures in place. Will continue to monitor.
[2017-05-25] VITALS: BP 120/62
--- NOTE | 2017-05-25 | NUR ---
Vital Signs BP 120/62, pulse 84, respirations 18, SpO2 99% room air, temp 98.3, no pain 0/10 CIWA deferred d/t pt sleeping, to assess while pt is awake as ordered. Safety measures in place, will continue to monitor.
[2017-05-25 04:00] VITALS: BP 112/61
--- NOTE | 2017-05-25 04:00 | NUR ---
Vital Signs BP 112/61, pulse 65, respirations 20, SpO2 97% room air, temp 97.9, no pain 0/10 CIWA deferred d/t pt sleeping, to assess while pt is awake as ordered. Safety measures in place, will continue to monitor.
--- NOTE | 2017-05-25 07:00 | NUR ---
End of Shift Pt is a 56 year old female admitted for ETOH dependence, placed on 5 day Ativan taper, completed. Pt reported using Vodka 200ml/daily & Beer 24 cans/daily. PMH: DM II, HTN, depression. pt reports allergies to codeine, regular diet, fall seizure precautions and full code. During shift, pt presents with anxiety, reports mild body aches - medications administered. Benadryl 50mg and Motrin 400mg PRN administered for pain right wrist and difficulty sleeping. Pt is scheduled for discharge today, no acute s/s of withdrawal noted. Pt slept for 5 hours, intake of 1000 ml PO, voids x1, and stool x0. Safety measures in place, call light within reach, side rails up x2, bed locked and in low position. Endorsed to day shift nurse.
--- NOTE | 2017-05-25 07:30 | NUR ---
START OF SHIFT NOTE: Report received from [employer] shift supervisor nurse. Pt is a 56 year old female admitted for ETOH dependence. To be discharged this AM. Pt is alert and oriented X4. Color good, skin warm and dry. Respirations even and unlabored. Safety precautions observed. Call light within reach.
[2017-05-25 08:20] VITALS: BP 136/80
[2017-05-25] MEDS: FOLIC ACID 1 MG TABLET PO SCH (08:28)
[2017-05-25] MEDS: MULTIVITAMINS,THERAPEUTIC TABLET PO SCH (08:28)
[2017-05-25] MEDS: METFORMIN HCL 500 MG TABLET PO SCH (08:28)
[2017-05-25 08:29] VITALS: BP 135/80
[2017-05-25] MEDS: GABAPENTIN 300 MG CAPSULE PO SCH (08:29)
[2017-05-25] MEDS: CLONIDINE HCL 0.1 MG TABLET PO SCH (08:29)
[2017-05-25] MEDS: AMLODIPINE 5 MG TABLET PO SCH (08:29)
[2017-05-25] MEDS: LISINOPRIL 20 MG TABLET PO SCH (08:29)
[2017-05-25] MEDS: glipiZIDE 5 MG TABLET PO SCH (08:30)
[2017-05-25] MEDS: THIAMINE HCL 100 MG TABLET PO SCH (08:30)
[2017-05-25] MEDS: IBUPROFEN 400 MG TABLET PO PRN (08:32)
--- NOTE | 2017-05-25 08:36 | NUR ---
[facility] Discharge papers signed. Motrin 400mg po prn given for right wrist pain.
--- NOTE | 2017-05-25 09:31 | NUR ---
Pt discharged in stable condition with all valuables and belongings. No home meds. Denies SI/HI. To [facility] private car.
== END 2017-05-25 09:31 | DRG 895 ==
LOC: SRC 20:57
PROVIDERS: ADMIT Internal Medicine; ATTEND Internal Medicine
PROC: HZ2ZZZZ Detoxification Services for Substance Abuse Treatment (ICD-10-PCS; principal; 2017-05-18)
PROC: HZ41ZZZ Group Counseling for Substance Abuse Treatment, Behavioral (ICD-10-PCS; 2017-05-20)
PROC: HZ31ZZZ Individual Counseling for Substance Abuse Treatment, Behavioral (ICD-10-PCS; 2017-05-20)
DX: F10.230 Alcohol dependence with withdrawal, uncomplicated (principal); E87.0 Hyperosmolality and hypernatremia; F10.220 Alcohol dependence with intoxication, uncomplicated; F13.10 Sedative, hypnotic or anxiolytic abuse, uncomplicated; Y90.5 Blood alcohol level of 100-119 mg/100 ml; F17.210 Nicotine dependence, cigarettes, uncomplicated; I10 Essential (primary) hypertension; E66.9 Obesity, unspecified; Z68.37 Body mass index [BMI] 37.0-37.9, adult; E86.1 Hypovolemia; E87.6 Hypokalemia; Z82.49 Family history of ischemic heart disease and other diseases of the circulatory system; Z81.1 Family history of alcohol abuse and dependence; E11.65 Type 2 diabetes mellitus with hyperglycemia; Z91.19 Patient's noncompliance with other medical treatment and regimen; F32.9 Major depressive disorder, single episode, unspecified; S63.501A Unspecified sprain of right wrist, initial encounter; W19.XXXA Unspecified fall, initial encounter; Y92.009 Unspecified place in unspecified non-institutional (private) residence as the place of occurrence of the external cause; G47.00 Insomnia, unspecified; D50.9 Iron deficiency anemia, unspecified
CPT/HCPCS: 36415; 70030-TC; 73110; 80307; 83690; 83735; 84443; 84703; 85025; 86580; 86592; 86705; 86803; 87340; 87806; 97165; A4663; G0480; J2405; J3411; Q0162; Q0163